=== PATIENT | female | born 2000 | race Caucasian/White ===

== ENCOUNTER 2023-08-08 20:39 | Outpatient (REF) | payer OTHER, SELFPAY ==
[2023-08-13 12:07] LABS: Age Gdln ACOG Testing Note (.); IGP, rfx Aptima HPV ASCU Note (.)
== END 2023-08-08 20:40 | disposition home or self-care (01) ==
LOC: LAB 20:39
PROVIDERS: Visit Provider Obstetrics & Gynecology
DX: Z01.419 Encounter for gynecological examination (general) (routine) without abnormal findings (principal)
CPT/HCPCS: G0145